=== PATIENT | female | born 1990 | race Two or more races ===

== ENCOUNTER 2020-11-12 10:15 | Inpatient (IN) | payer OTHER ==
[~2020-11-12] VITALS: Ht 165.1 cm; Wt 3.2 kg
[2020-11-12] MEDS ORDERED: PRENA1 CHEW TA1.4 MG PO (12:40)
[2020-11-12] MEDS ORDERED: PROCARDIA PO (12:40)
[2020-11-26] MEDS ORDERED: KETO10TA2 PO (07:32)
[2020-11-26] MEDS ORDERED: OXYC1TAB9 PO (07:32)
== END 2020-11-26 13:28 | disposition home or self-care (01) | DRG 788 ==
LOC: SURG-SUITE 11-23 04:13 → LDR 11-23 04:13 → SURG-SUITE 11-23 06:45 → OB/GYN 11-25 10:15 → SURG-SUITE 11-26 13:28
PROVIDERS: Obstetrics & Gynecology Maternal & Fetal Medicine; ADMIT Obstetrics & Gynecology; ATTEND Obstetrics & Gynecology
PROC: 4A1HXFZ Monitoring of Products of Conception, Cardiac Rhythm, External Approach (ICD-10-PCS; 2020-11-23)
PROC: 10D00Z1 Extraction of Products of Conception, Low, Open Approach (ICD-10-PCS; principal; 2020-11-23 07:00)
DX: O34.211 Maternal care for low transverse scar from previous cesarean delivery (principal); Z3A.39 39 weeks gestation of pregnancy; Z37.0 Single live birth

== ENCOUNTER 2023-11-11 19:08 | Inpatient (IN) | payer OTHER ==
[~2023-11-11] VITALS: Ht 165.1 cm; Wt 63.5 kg
[~2023-11-11 19:08] MED LIST: KETO10TA2 PO; OXYC1TAB9 PO; PRENA1 CHEW TA1.4 MG PO; PROCARDIA PO
[2023-11-11] MEDS ORDERED: MAGNESIUM SULFATE IN WATER 500 ML IV SCH (19:15)
[2023-11-11] MEDS ORDERED: MAGNESIUM SULFATE IN WATER 100 ML IV ONE (19:15)
[2023-11-11] MEDS ORDERED: RINGERS SOLUTION,LACTATED 1,000 ML IV SCH (19:15)
[2023-11-11] MEDS ORDERED: BETAMETHASONE ACETATE,SOD PHOS 30 MG/5 ML ML IM STA (19:22)
[2023-11-11 19:53] LABS: URINE APPEARANCE Clear; URINE BILIRRUBIN Negative (NEGATIVE); URINE BLOOD Negative; URINE COLOR Yellow; URINE GLUCOSE Negative (NEGATIVE); URINE LEUKOCYTE Small; URINE NITRATE Negative; URINE PROTEIN Negative (NEGATIVE); URINE UROBILINOGEN 0.2 E.U./dl
[2023-11-11 19:56] LABS: URINE BACTERIA 566.6 uL (0.0-1933); URINE EPITHELIAL CELLS 25.3 uL (0.0-38.8); URINE WBC 20.6 uL (0.0-23.2)
[2023-11-11 20:04] LABS: URINE RBC 1.5 uL (0.0-20.8)
[2023-11-11 20:10] LABS: HEMATOCRIT 34.5 % (36.0-45.00); HEMOGLOBIN 11.6 g/dL (12.0-15.00); MEAN CELL VOLUME 94.3 fL (80.00-100.00); MEAN CORPUSCULAR HEMOGLOBIN 31.6 pg (27.00-32.0); MEAN CORPUSCULAR HGB CONC 33.5 g/dl (32.0-36.0); PLATELET COUNT 160 K/uL (150-450); RED BLOOD COUNT 3.66 M/uL (4.00-6.00); RED CELL DISTRIBUTION WIDTH 14.1 % (11.5-14.5)
[2023-11-11 20:24] LABS: INR < 0.93; PARTIAL THROMBOPLASTIN TIME 23.9 SECONDS (22.0-34.0); PROTHROMBIN TIME 9.5 SECONDS (9.0-11.5)
[2023-11-11 20:36] LABS: ALBUMIN 3.4 gm/dL (3.4-5.0); BILIRUBIN TOTAL 0.29 mg/dL (0.3-1.2); CALCIUM 10.1 mg/dL (8.5-10.1); CREATININE SERUM 0.45 mg/dL (0.55-1.02); GFR 160.46; GLOBULINA 3.7 G/DL (2.4-3.5); POTASSIUM 3.91 mEq/L (3.5-5.1); TOTAL PROTEIN 7.1 gm/dL (6.4-8.2)
[2023-11-12] MEDS ORDERED: IRON325 MG PO (10:32)
[2023-11-12] MEDS ORDERED: ACETAMINOPHEN 500 MG GEL..CAP PO SCH (12:00)
[2023-11-12] MEDS ORDERED: GUAIFENESIN 100 MG/5 ML BLIST.PACK PO SCH (12:45)
[2023-11-12] MEDS ORDERED: BETAMETHASONE ACETATE,SOD PHOS 30 MG/5 ML ML IM NR (19:30)
== END 2023-11-13 08:52 | disposition home or self-care (01) | DRG 833 ==
LOC: LDR 19:08
PROVIDERS: ADMIT Obstetrics & Gynecology Gynecology; ATTEND Obstetrics & Gynecology Gynecology
PROC: 4A1HXCZ Monitoring of Products of Conception, Cardiac Rate, External Approach (ICD-10-PCS; principal; 2023-11-11)
DX: O47.03 False labor before 37 completed weeks of gestation, third trimester (principal); Z3A.33 33 weeks gestation of pregnancy; Z20.822 Contact with and (suspected) exposure to COVID-19

== ENCOUNTER 2023-12-05 10:45 | Inpatient (IN) | payer OTHER ==
[~2023-12-05] VITALS: Ht 165.1 cm; Wt 3.6 kg
[~2023-12-05 10:45] MED LIST changes: +IRON325 MG PO
[2023-12-05 13:18] LABS: HEMATOCRIT 32.8 % (36.0-45.00); HEMOGLOBIN 11.1 g/dL (12.0-15.00); MEAN CELL VOLUME 93.2 fL (80.00-100.00); MEAN CORPUSCULAR HEMOGLOBIN 31.6 pg (27.00-32.0); MEAN CORPUSCULAR HGB CONC 33.9 g/dl (32.0-36.0); RED BLOOD COUNT 3.52 M/uL (4.00-6.00); RED CELL DISTRIBUTION WIDTH 13.9 % (11.5-14.5)
[2023-12-05 13:20] LABS: PLATELET COUNT 123 K/uL (150-450)
[2023-12-05 13:45] LABS: INR < 0.93; PARTIAL THROMBOPLASTIN TIME 24.8 SECONDS (22.0-34.0)
[2023-12-05 13:49] LABS: PROTHROMBIN TIME 9.7 SECONDS (9.0-11.5)
[2023-12-05 13:51] LABS: BILIRUBIN TOTAL 0.36 mg/dL (0.3-1.2); CALCIUM 8.8 mg/dL (8.5-10.1); CREATININE SERUM 0.5 mg/dL (0.55-1.02); GFR 142.09; GLOBULINA 3.3 G/DL (2.4-3.5); POTASSIUM 3.58 mEq/L (3.5-5.1); TOTAL PROTEIN 6.3 gm/dL (6.4-8.2)
[2023-12-15] MEDS ORDERED: OXYTOCIN 10 UNITS/ML VIAL ONE (21:44)
[2023-12-15] MEDS ORDERED: ERYTHROMYCIN BASE 1 GM TUBE OP ONE (21:44)
[2023-12-15] MEDS ORDERED: CEFAZOLIN SODIUM 1,000 MG VIAL IV SCH (21:45)
[2023-12-15] MEDS ORDERED: CITRIC ACID/SODIUM CITRATE 30 ML BLIST.PACK PO SCH (21:45)
[2023-12-15] MEDS ORDERED: RINGERS SOLUTION,LACTATED 1,000 ML IV SCH (21:45)
[2023-12-15] MEDS ORDERED: CEFOXITIN SODIUM 2,000 MG VIAL IV SCH (22:00)
[2023-12-15] MEDS ORDERED: CEFOXITIN SODIUM 2,000 MG VIAL IV ONE (22:01)
[2023-12-15] MEDS ORDERED: CITRIC ACID/SODIUM CITRATE 30 ML BLIST.PACK PO ONE (22:02)
[2023-12-16] MEDS ORDERED: MEPERIDINE HCL 25 MG/ML AMPUL IM PRN (00:45)
[2023-12-16] MEDS ORDERED: KETOROLAC TROMETHAMINE 30 MG VIAL IM ONE (00:45)
[2023-12-16] MEDS ORDERED: PROMETHAZINE HCL 25 MG/ML AMPUL IM PRN (00:45)
[2023-12-16] MEDS ORDERED: OXYTOCIN 10 UNITS/ML VIAL ONE (00:51)
[2023-12-16] MEDS ORDERED: KETOROLAC TROMETHAMINE 30 MG VIAL ONE (00:51)
[2023-12-16] MEDS ORDERED: KETOROLAC TROMETHAMINE 10 MG TABLET PO PRN (01:00)
[2023-12-16] MEDS ORDERED: ERYTHROMYCIN BASE 1 GM TUBE OP ONE (01:00)
[2023-12-16] MEDS ORDERED: OXYTOCIN 10 UNITS/ML VIAL IV ONE (01:00)
[2023-12-16] MEDS ORDERED: CEFAZOLIN SODIUM 1,000 MG VIAL IV SCH (02:24)
[2023-12-16] MEDS ORDERED: SIMETHICONE 125 MG CAPSULE PO SCH (02:24)
[2023-12-16] MEDS ORDERED: CEFAZOLIN SODIUM 1,000 MG VIAL ONE (02:28)
[2023-12-16 07:28] LABS: HEMATOCRIT 30.4 % (36.0-45.00); HEMOGLOBIN 10.3 g/dL (12.0-15.00); MEAN CORPUSCULAR HEMOGLOBIN 31.7 pg (27.00-32.0); MEAN CORPUSCULAR HGB CONC 33.8 g/dl (32.0-36.0); RED BLOOD COUNT 3.23 M/uL (4.00-6.00); RED CELL DISTRIBUTION WIDTH 13.9 % (11.5-14.5)
[2023-12-16 07:53] LABS: PLATELET COUNT 112 K/uL (150-450)
[2023-12-16 10:27] LABS: HEMATOCRIT 31.2 % (36.0-45.00); HEMOGLOBIN 10.5 g/dL (12.0-15.00); MEAN CELL VOLUME 94.7 fL (80.00-100.00); MEAN CORPUSCULAR HEMOGLOBIN 31.8 pg (27.00-32.0); MEAN CORPUSCULAR HGB CONC 33.6 g/dl (32.0-36.0); RED BLOOD COUNT 3.29 M/uL (4.00-6.00); RED CELL DISTRIBUTION WIDTH 13.9 % (11.5-14.5)
[2023-12-16 10:49] LABS: PLATELET COUNT 113 K/uL (150-450)
[2023-12-16] MEDS ORDERED: OxyCODONE HCL/APAP UD (PERCOCET) PO PRN (13:45)
[2023-12-16] MEDS ORDERED: ACETAMINOPHEN 500 MG GEL..CAP PO SCH (14:00)
[2023-12-17] MEDS ORDERED: MAGNESIUM HYDROXIDE 30 ML BLIST.PACK PO ONE ×2 (20:00→20:19)
[2023-12-18] MEDS ORDERED: OXYC1TAB9 PO (08:01)
[2023-12-18] MEDS ORDERED: KETO10TA2 PO (08:01)
== END 2023-12-18 12:42 | disposition home or self-care (01) | DRG 788 ==
LOC: LDR 12-15 21:29 → OB/GYN 12-15 21:29
PROVIDERS: ADMIT Obstetrics & Gynecology Maternal & Fetal Medicine; ATTEND Obstetrics & Gynecology Maternal & Fetal Medicine
PROC: 4A1HXCZ Monitoring of Products of Conception, Cardiac Rate, External Approach (ICD-10-PCS; 2023-12-15)
PROC: 10D00Z1 Extraction of Products of Conception, Low, Open Approach (ICD-10-PCS; principal; 2023-12-15 21:00)
DX: O34.211 Maternal care for low transverse scar from previous cesarean delivery (principal); Z3A.38 38 weeks gestation of pregnancy; Z37.0 Single live birth; Z20.822 Contact with and (suspected) exposure to COVID-19